=== PATIENT | female | born 1980 | race Hispanic/Latino ===

== ENCOUNTER 2021-06-21 10:37 | Emergency (ER) | payer SELFPAY ==
[~2021-06-21] VITALS: Ht 157.5 cm; Wt 64.0 kg
[2021-06-21] MEDS ORDERED: TORADOL PO (11:21)
[2021-06-21] MEDS ORDERED: CLEOCIN150 M1 PO (11:21)
[2021-06-21 12:05] VITALS: BP 122/77
== END 2021-06-21 12:06 | disposition home or self-care (01) | DRG 159 ==
LOC: ED 10:37
DX: K08.89 Other specified disorders of teeth and supporting structures (principal)